=== PATIENT | male | born 1960 | race Caucasian/White ===

== ENCOUNTER 2022-09-17 14:12 | Inpatient (IN) | payer MEDICARE, MEDICAID, SELFPAY ==
--- NOTE | ~2022-09-17 | MR_ITS ---
MRI of the lumbar spine Clinical History: Weakness, multiple sclerosis Technique: Axial T2-weighted and gradient images, and sagittal T1-weighted, T2-weighted, and STIR adilson ges were acquired. Following intravenous administration of 16 cc MultiHance gadolinium, T1-weighted f at-sat imaging was performed in the axial and sagittal planes. Findings: There is no fracture or subluxation of the lumbar spine. Vertebral bodies maintain normal h eight and alignment. No bone marrow signal abnormality seen. At L1-L2, L2-L3, there is no disc bulge or herniation. No spinal canal stenosis or neural foraminal n arrowing at these levels. At L3-L4, there is minimal disc bulge with mild facet arthropathy. No spinal canal stenosis. There is mild to moderate right neural foraminal narrowing. Left neural foramen preserved. At L4-L5, there is minimal disc bulge with facet arthropathy. No spinal canal stenosis. There is mode rate right neural foraminal narrowing. Left neural foramen preserved. At L5-S1, there is no disc bulge or herniation. There is mild facet joint degenerative change. No spi nal canal stenosis or neural foraminal narrowing. Cauda equina unremarkable. No epidural mass or collection seen otherwise. No abnormal postcontrast en hancement identified. Paravertebral soft tissues are unremarkable. Impression: No abnormal postcontrast enhancement. Right neural foraminal narrowing at L3-L4 and L4-L5, as detailed above. Reviewed, dictated and finalized at [facility]. ATING COST CLERK Impression: No abnormal postcontrast enhancement. Right neural foraminal narrowing at L3-L4 and L4-L5, as detailed above.
--- NOTE | ~2022-09-17 | MR_ITS ---
EXAMINATION: MR brain/brain stem wo/w con DATE: 09/18/2022 13:29 INDICATION: Weakness. Multiple sclerosis. TECHNIQUE: Magnetic resonance imaging (MRI) of the brain and brainstem was performed without and with 16 mL Multihance intravenous contrast. Sequences included sagittal and axial T1-weighted FLAIR, axia l T1-weighted FSE, axial diffusion-weighted FS EPI, sagittal T2-weighted FLAIR, axial T2*-weighted GR E, axial T2-weighted FLAIR Propeller, and axial T2-weighted Propeller. Postcontrast sequences include d axial, coronal, and sagittal T1-weighted FSE. Apparent diffusion coefficient (ADC) maps were create d. . COMPARISON: Head CT dated 09/17/2022 FINDINGS: There are no areas of restricted diffusion to suggest acute infarction. No intracranial hemorrhage or abnormal intracranial mass lesion. There are multiple periventricular predominant T2 hyperintense le sions becoming confluent along the bilateral corpus callosum with fingerlike radiating peripherally f rom the corpus callosum with typical Lopez's fingers configuration of multiple sclerosis. Several of the lesions also demonstrate associated decreased T1 signal most prominently along the right posteri or frontal periventricular white matter. No infratentorial lesions identified. No enhancing lesions i dentified. There are no intraparenchymal signal abnormalities seen on the other pulse sequences. The ventricles are symmetric and normal in size. There are no abnormal extra-axial fluid collections. Eddy w voids are seen in the cerebral arteries on the T2-weighted sequences consistent with their expected patency. Mild mucoperiosteal thickening the bilateral frontal and ethmoid sinuses. Visualized orbits and soft tissues are unremarkable. IMPRESSION: 1. Multiple periventricular predominant T2 hyperintense white matter lesions, the majority with perip herally radiating pattern of pericallosal T2 hyperintense white matter lesions with Lopez's finger l munira pattern typical for multiple sclerosis. No evident enhancing lesions to suggest currently progres sing disease. Reviewed, dictated and finalized at location A. FIXING PLUMBER IMPRESSION: 1. Multiple periventricular predominant T2 hyperintense white matter lesions, t he majority with peripherally radiating pattern of pericallosal T2 hyperintense white matter lesions with Lopez's finger like pattern typical for multiple sc lerosis. No evident enhancing lesions to suggest currently progressing disease.
--- NOTE | ~2022-09-17 | MR_ITS ---
MRI of the thoracic spine Clinical History: Weakness, multiple sclerosis Technique: Axial T2-weighted and gradient images, and sagittal T1-weighted, T2-weighted, and STIR adilson ges were acquired. Following intravenous administration of 16 cc MultiHance gadolinium, T1-weighted f at-sat imaging was performed in the axial and sagittal planes. Findings: There is no fracture or subluxation of the thoracic spine. Vertebral bodies maintain normal height and alignment. No bone marrow signal abnormality seen. Small central disc protrusion noted at T5-T6, with minimal flattening of the ventral cord. No other d isc bulge or herniation seen. No other areas of spinal canal stenosis or cord compression. No epidura l mass or collection seen otherwise. No definite abnormal signal seen in the thoracic spinal cord. No abnormal postcontrast enhancement se en. Paravertebral soft tissues are unremarkable. Impression: No spinal cord lesion identified. Small central disc protrusion at T5-T6, with minimal flattening of the ventral cord. Reviewed, dictated and finalized at [facility]. ROLLER OPERATOR Impression: No spinal cord lesion identified. Small central disc protrusion at T5-T6, with minimal flattening of the ventral cord.
--- NOTE | ~2022-09-17 | MR_ITS ---
MRI of the cervical spine Clinical History: Weakness, multiple sclerosis Technique: Axial T2-weighted, T1-weighted, and gradient images, and sagittal T1-weighted, T2-weighted , and STIR images were acquired. Following intravenous administration of 16 cc MultiHance gadolinium, T1-weighted fat-sat imaging was performed in the axial and sagittal planes. Findings: There is no fracture or subluxation of the cervical spine. Vertebral bodies maintain normal height and alignment. No bone marrow signal abnormality identified. At C2-C3 and C3-C4, there is no disc bulge or herniation. No spinal canal stenosis, cord compression, or neural foraminal narrowing at these levels. At C4-C5, disc osteophyte complex is present, with mild effacement of the ventral thecal sac, but no lius cord compression. Bilateral neural foramina are preserved. At C5-C6, disc osteophyte complex is present, with mild effacement of the anterior thecal sac, but no luis cord compression. Bilateral neural foramina are preserved. At C6-C7, there is no significant disc bulge or herniation. No spinal canal stenosis, cord compressio n, or neural foraminal narrowing identified. There are probable multiple hyperintense amorphous spinal cord lesions, most notably on the left side of the cord at the C2 level, probably centrally in the cord at the C3 level and C4 levels, and possi ble minimal left-sided cord at the C5 level. Suspected right-sided cord lesion at C6 level. No abnormal postcontrast enhancement identified. No prevertebral soft tissue swelling. Impression: Multiple probable subtle, amorphous hyperintense spinal cord lesions, consistent with demyelinating p laques of multiple sclerosis. No abnormal postcontrast enhancement. Mild degenerative spondylosis, as detailed above. Reviewed, dictated and finalized at [facility]. UI DEVELOPER Impression: Multiple probable subtle, amorphous hyperintense spinal cord lesions, consisten t with demyelinating plaques of multiple sclerosis. No abnormal postcontrast enhancement. Mild degenerative spondylosis, as detailed above.
--- NOTE | ~2022-09-17 | CT_ITS ---
Non-contrast Head CT History: Weakness Technique: Axial non-contrast imaging of the brain was performed. Dose reduction technique was used on this scan by utilizing automated exposure control and iterative reconstruction technique. The dose -length product (DLP) was 605.33 mGy-cm. Findings: There is no evidence of intracranial hemorrhage, mass lesion, or acute infarct. Brain par enchyma appears normal. The ventricles and subarachnoid spaces are normal in size. The calvarium ap pears normal. The visualized paranasal sinuses and mastoid air cells are clear. Impression: No significant abnormality seen. Reviewed, dictated and finalized at location . NG ROOM ATTENDANT Impression: No significant abnormality seen.
--- NOTE | ~2022-09-17 | XR_ITS ---
Portable chest x-ray Comparison: None Clinical History: Weakness, mental status change Findings: Lungs are clear, without focal consolidation or pleural effusion. Cardiomediastinal silho uette is unremarkable. Bones and soft tissues are unremarkable. Impression: Normal chest. Reviewed, dictated and finalized at [facility]. RDS SPECIALIST Impression: Normal chest.
[2022-09-17 15:08] VITALS: BP 126/82; PULSE 119; RESP 20; TEMP 36.6; O2SAT 99
--- NOTE | 2022-09-17 16:12 | ECG_ITS ---
Measurements Intervals [place] Rate: 80 P: 19 [place]: 174 QRS: 5 QRSD: 101 T: 28 QT: 356 QTc: 412 Interpretive Statements SINUS RHYTHM NO PREVIOUS ECG AVAILABLE FOR COMPARISON Electronically Signed On 09-18-2022 17:51:00 APPARATUS ENGINEERING TECHNOLOGIST by Priya Manning M.D.
[2022-09-17 16:30] LABS: Add Urine Microscopic? NO; Appearance Urine Clear (Clear); Bilirubin Urine Negative (Negative); Blood Urine Negative (Negative); Color Urine Light Yellow (Yellow); Glucose Urine UA Negative (Negative); Ketones Urine Negative (Negative); Leukocyte Esterase Ur Negative LEU/UL (Negative); Nitrate Urine Negative (Negative); Protein Urine Negative (Negative); Urobilinogen Urine 0.2 mg/dL (<2.0)
[2022-09-17 16:32] LABS: Basophils Absolute Auto 0.1 K/mm3 (0.0-0.1); Basophils Percent Auto 0.5 % (0.2-1.2); Eosinophils Absolute Auto 0.1 K/mm3 (0-0.3); Eosinophils Percent Auto 0.6 % (0-4.4); Hematocrit 40.8 % (42.0-52.0); Hemoglobin 13.9 g/dL (14.0-18.0); Immature Granulocyte Absolute 0.07 K/mm3 (0.00-0.031); Immature Granulocyte Percent A 0.6 % (0-0.5); Lymphocytes Absolute Auto 1.26 K/mm3 (0.9-3.2); Lymphocytes Percent Auto 10.8 % (18.3-44.2); Mean Corpuscular HGB Conc 34.1 g/dl (32-36); Mean Corpuscular Hemoglobin 30.7 pg (26-34); Mean Corpuscular Volume 90.1 fl (80-100); Monocytes Absolute Auto 0.8 K/mm3 (0.1-0.6); Monocytes Percent Auto 6.8 % (2.6-8.5); Neutrophils Absolute Auto 9.4 K/mm3 (1.3-6.7); Neutrophils Percent Auto 80.7 % (45.5-73.1); Platelet Count Result 230 k/mm3 (150-375); Red Blood Count 4.53 M/mm3 (4.6-6.20); White Blood Count 11.7 K/mm3 (4.5-10.0)
--- NOTE | 2022-09-17 16:38 | ED.AMS ---
HPI - Altered Mental Status General Chief Complaint: Altered Mental Status Stated Complaint: increased confusion/tbi/psych problems Time Seen by Provider: 09/17/22 16:10 Source: patient and EMS Mode of arrival: EMS Limitations: clinical condition History of Present Illness HPI narrative: Patient is a 62-year-old male with a history of multiple sclerosis, manic behavior, presenting to the emergency department for evaluation of altered mental status. Patient is currently alert and oriented to person, place, to time. This, he has difficulty focusing during the interview but when directed is able to provide accurate answers. He denies any focal pain but states that something is wrong with him. Patient denies suicidal or homicidal ideation or auditory hallucinations. He denies fall or injury. States that earlier today he was trying to speak with his ex- with whom he lives and she felt that he was confused and agitated. After I discussed this with ex-, she states that he has had increasing agitation and aggressive behavior. He has been increasingly weak in the bilateral lower extremities and she has been unable to care for him. Apparently, patient's weakness increased while he was at [facility] today which is a area that he does not typically frequent. Patient is quite agitated and tearful at the time of assessment unable to provide additional history but is able to follow commands. Ex- states he has seen Dr. Kumari at [facility] in the past. Related Data Allergies Allergy/AdvReac Type Severity Reaction Status Date / Time cephalexin Allergy Unknown Verified 10/03/16 17:20 Review of Systems Review of Systems: ROS unobtainable: Yes unobtainable due to mental status PMFSH Family History Family History Other Cerebrovascular accident Diabetes mellitus Family history of cardiovascular disease Hypertension Social History Social History Smoking status: Smoker, status unknown Exam Narrative: GENERAL: Awake, alert, tearful, agitated HEAD: Normocephalic, atraumatic. EYES: PERRLA and EOMI. ENT: Nares clear, no rhinorrhea or epistaxis. Mucous membranes moist. NECK: Supple. CHEST: No respiratory distress, breathing even and non labored HEART: Tachycardic rate, sinus rhythm ABDOMEN:Non distended, non tender EXTREMITIES: Normal range of motion. No edema. SKIN: Warm, dry, no rash. NEURO:No focal deficits. Alert and oriented x3. Finger to nose slowed but intact bilaterally. EOMs intact without nystagmus. No facial droop/asymmetry noted bilaterally. Grimace intact. Intact sensation in face. Hearing intact bilaterally. Shoulder shrug intact. Strength 5/5 bilateral upper extremities. Bilateral lower extremities are weak, patient is unable to resist gravity or raise legs from wheelchair. Ambulatory exam deferred. Course Vital Signs Vital signs: Vital Signs Temperature 36.6 C 09/17/22 15:08 Pulse Rate 119 H 09/17/22 15:08 Respiratory Rate 20 09/17/22 15:08 Blood Pressure 126/82 09/17/22 15:08 Pulse Oximetry 99 09/17/22 15:08 Oxygen Delivery Room Air 09/17/22 15:08 Temperature 36.6 C 09/17/22 15:08 Pulse Rate 119 H 09/17/22 15:08 Respiratory Rate 20 09/17/22 15:08 Blood Pressure 126/82 09/17/22 15:08 Pulse Oximetry 99 09/17/22 15:08 Oxygen Delivery Room Air 09/17/22 15:08 MDM - Altered Mental Status MDM Narrative Medical decision making narrative: Patient presenting for evaluation of agitation, lower extremity weakness. Found to be quite tearful at the time of assessment. ABCs are intact, vital signs patient is tachycardic. No evidence of fall or injury. Lower extremities do not have any bruising or deformity that would be concerning for osseous abnormality. Laboratory results are reassuring. No significant electrolyte derangement, no evidence of infectious process.
[2022-09-17 16:40] LABS: Acetaminophen < 10 ug/mL (10-30); Ethanol < 10 mg/dL (<10); Salicylate < 1.0 mg/dL (2-20)
[2022-09-17 16:45] LABS: Mucus Urine Rare /lpf; RBC Urine 0-2 /hpf (0-2); WBC Urine 0-3 /hpf
[2022-09-17 16:47] LABS: Prothrombin Time 12.6 Seconds (11.1-14.7)
[2022-09-17 16:48] LABS: Partial Thromboplastin Time 31.4 SECONDS (22.3-36.8)
[2022-09-17 16:50] LABS: Lactic Acid Reflex 1.2 mmol/L (0.7-2.0)
[2022-09-17 16:51] LABS: Alanine Aminotransferase 43 U/L (6-50); Albumin Level 5.1 g/dL (3.5-5.1); Alkaline Phosphatase 75 U/L (38-126); Anion Gap 9 mmol/L (8-16); Aspartate Amino Transferase 40 U/L (17-59); Bilirubin,Total 0.7 mg/dL (0.2-1.3); Blood Urea Nitrogen 17 mg/dL (9-20); Calcium 9.3 mg/dL (8.4-10.2); Carbon Dioxide 25 mmol/L (22-30); Chloride 101 mmol/L (98-107); Creatine Kinase 126 U/L (55-170); Estimated CRCL calculation 87 ml/min; Estimated Glomerular Filt Rate > 60; Glucose 107 mg/dL (65-110); Potassium 4.6 mmol/L (3.4-5.0); Sodium 135 mmol/L (137-145)
[2022-09-17 17:05] LABS: Amphetamine Screen Urine Negative (Negative); Cannabinoid Screen Urine Positive (Negative); Cocaine Screen Urine Negative (Negative); Methadone Screen Urine Negative (Negative); Opiate Screen Urine Positive (Negative); Phencyclidine Screen Urine Negative (Negative)
[2022-09-17 17:06] LABS: Influenza A QL RT-PCR Negative (Negative); Influenza B QL RT-PCR Negative (Negative); RSV RNA, RT-PCR Negative (Negative); SARS-CoV-2 RNA PCR Negative
[2022-09-17 17:18] LABS: Barbiturate Screen Urine Negative (Negative); Benzodiazepines Screen Urine Negative (Negative)
[2022-09-17 17:28] LABS: Thyroid Stimulating Hormone 0.963 uIU/mL (0.465-4.680)
[2022-09-17 17:38] LABS: Troponin I < 0.012 ng/mL (0.000-0.034)
[2022-09-17] MEDS: SODIUM CHLORIDE 0.9% IV 1,000 ML 999 ML IV CONT (18:52)
--- NOTE | 2022-09-17 19:11 | PM.IMHP ---
H&P: HPI History of Present Illness Date/Time: 09/17/22 19:11 Chief Complaint: Altered mental status Narrative: This is a 62-year-old male patient who has a history of MS and manic behavior. The patient came to the emergency room to be evaluated for his altered mental status. The patient was having difficulty focusing today and his legs were weak. The patient denies any homicidal or suicidal ideation or any hallucinations. He has not had any recent injury. The patient does live with his ex- and he has been more agitated and aggressive lately. The patient stated he is under the care of a psychiatrist and stated he like to go to [facility]. The patient's legs were very weak today and the ex- stated she could not take care of the patient. Chest x-ray was read as normal chest. Head CT was read as no significant abnormality seen. The ED provider consulted Neurology. Patient's white count 11.7. H&H is 13.9 and 40.8. Sodium is slightly low at 135. The patient is positive for opiates and the patient admits to smoking marijuana today. He was positive for cannabinoids. The patient is negative for influenza a B COVID and RSV. The patient was given normal saline and I ordered Ativan for the patient. The patient is being admitted to observation status on the date of service of 09/17/2022. Review of Systems Review of Systems: See HPI All systems reviewed & are unremarkable except as noted in HPI and below Constitutional: Constitutional: Reports as per HPI and Reports no additional constitutional complaints Eyes: Eyes: Reports as per HPI and Reports no additional eye complaints ENT: Reports system reviewed and no additional complaints, except as documented and Reports Normal hearing present Cardiovascular: Cardiovascular: Reports no additional cardiovascular complaints Respiratory: Respiratory: Reports no additional respiratory complaints and Reports no additional respiratory complaints Gastrointestinal: Gastrointestinal: Reports as per HPI and Reports no additional gastrointestinal complaints Musculoskeletal: Musculoskeletal: Reports no additional musculoskeletal complaints Integumentary/Breasts: Skin/Breast: Reports system reviewed and no additional complaints, except as docu and Reports as per HPI Neurologic: Reports system reviewed and no additional complaints, except as documented, Reports as per HPI and Reports Normal hearing present Psychiatric: Psychiatric: Reports no additional psychiatric complaints and Reports as per HPI Endocrine: Endocrine: Reports no additional endocrine complaints Hematologic/Lymphatic: Hematologic/Lymphatic: Reports no additional hematologic/lymphatic complaints Allergic/Immunologic: Allergic/Immunologic: Reports no additional allergic/immunologic complaints [facility] Past Medical History Medical History (Updated 09/17/22 @ 21:10 by Tami Blankenship NP) Anxiety and depression Hyperlipidemia Multiple sclerosis Surgical History Surgical History No history of previous surgery Family History Family History Other Cerebrovascular accident Diabetes mellitus Family history of cardiovascular disease Hypertension Social History Social History (Updated 09/17/22 @ 21:16 by Tami Blankenship NP) Social History: The patient has 3 children. He lives with his ex- Carmen who is his durable power commercial real estate attorney for healthcare. He is Diabled. He is a recovering Alcoholic. The patient smokes marijuana when he feels anxious. Code status full code Smoking status: Current some day smoker Substance use type: marijuana Meds Home Medications and Allergies Home Medications Medication Instructions Recorded Confirmed Type [place]-3 Fish Oil 1,200 mg PO Q12H 09/17/22 09/17/22 History amitriptyline 25 mg tablet 50 mg PO HS 09/17/22 09/17/22 History aspirin 81 mg tablet
[2022-09-17 20:00] VITALS: PULSE 76
[2022-09-17 20:30] VITALS: BP 140/79; PULSE 82; RESP 13; TEMP 36.3; O2SAT 97
--- NOTE | 2022-09-17 20:35 | ADMGEN ---
This patient, Beny Smith, was admitted to [facility] Surg Room 321-02. Patient/family oriented to hospital policies and general routines including ID bracelet, bed and alarms, visiting hours, pain management, procedures, bathroom and other care routines, personal items, smoking policy, room service/diet, and visiting hours. Information on how to activate the Rapid Response Team has been discussed. Patient/Family are encouraged to report perceived risks to care and to ask questions if they do not understand what they are told or what they should do.
[2022-09-17 21:00] VITALS: BMI 25.7
[2022-09-17] MEDS: FLUTICASONE PROPIONATE 0.05% NA SPR 16 GM BTL (*BKC) 1 SPRAY NASAL (23:02)
[2022-09-17] MEDS: AMITRIPTYLINE HCL 25 MG TABLET 50 MG PO (23:02)
[2022-09-17] MEDS: ESCITALOPRAM OXALATE 10 MG TABLET PO (23:02)
[2022-09-17] MEDS: ESCITALOPRAM OXALATE 5 MG TABLET PO (23:02)
[2022-09-17] MEDS: DIVALPROEX SODIUM ER 250 MG TAB.24H PO (23:02)
[2022-09-17] MEDS: OMEGA 3 POLYUNSAT FATTY ACIDS 1 GM CAP PO (23:02)
[2022-09-18] VITALS (10 sets, daily range): BP systolic 79–109; BP diastolic 56–70; PULSE 60–98; RESP 16–18; TEMP 35.8–36.4; O2SAT 95–98; BMI 25.7
--- NOTE | 2022-09-18 04:29 | PCRCNOTE ---
rt found marijuana pipe and platen grinder on bedside table. pipe and platen grinder given to RN. RN put pipe and platen grinder in safe.
--- NOTE | 2022-09-18 04:50 | PC.NURSE ---
Patient became verbally aggressive towards staff s/p confiscation of marijuana pipe; patient yelled at staff when staff attempted to explain that his pipe and occupational work experience teacher will be returned at time of discharge. Patient then accused staff of stealing his other possessions, including his pants, wallet, and hat. Staff attempted to explain to patient that his hat had fallen on the floor and that his wallet was in his personal belongings bag; pants were laying at the end of the bed. Patient stated he no longer wanted to stay at the hospital. Patient is not oriented to time and unable to redirect. office machine repair shop supervisor arrived during the incident and assisted in diffusing the situation.
[2022-09-18 07:18] LABS: Lactic Acid Reflex 0.8 mmol/L (0.7-2.0)
[2022-09-18 07:19] LABS: Anion Gap 4 mmol/L (8-16); Blood Urea Nitrogen 22 mg/dL (9-20); Calcium 8.8 mg/dL (8.4-10.2); Carbon Dioxide 28 mmol/L (22-30); Chloride 105 mmol/L (98-107); Estimated CRCL calculation 87 ml/min; Estimated Glomerular Filt Rate > 60; Glucose 98 mg/dL (65-110); Potassium 4.3 mmol/L (3.4-5.0); Sodium 137 mmol/L (137-145)
[2022-09-18 07:21] LABS: Basophils Percent Auto 0.8 % (0.2-1.2); Eosinophils Absolute Auto 0.1 K/mm3 (0-0.3); Eosinophils Percent Auto 2.4 % (0-4.4); Hematocrit 37.5 % (42.0-52.0); Hemoglobin 12.3 g/dL (14.0-18.0); Immature Granulocyte Absolute 0.03 K/mm3 (0.00-0.031); Immature Granulocyte Percent A 0.6 % (0-0.5); Lymphocytes Absolute Auto 0.97 K/mm3 (0.9-3.2); Lymphocytes Percent Auto 19.6 % (18.3-44.2); Mean Corpuscular HGB Conc 32.8 g/dl (32-36); Mean Corpuscular Hemoglobin 30.4 pg (26-34); Mean Corpuscular Volume 92.6 fl (80-100); Mean Platelet Volume 10.2 fl (7.4-10.4); Monocytes Absolute Auto 0.5 K/mm3 (0.1-0.6); Monocytes Percent Auto 10.9 % (2.6-8.5); Neutrophils Absolute Auto 3.3 K/mm3 (1.3-6.7); Neutrophils Percent Auto 65.7 % (45.5-73.1); Platelet Count Result 189 k/mm3 (150-375); Red Blood Count 4.05 M/mm3 (4.6-6.20); Red Cell Distribution Width 13.1 % (11.5-14.5)
[2022-09-18 08:00] LABS: Thyroid Stimulating Hormone Reflex 0.731 uIU/mL (0.465-4.68)
[2022-09-18] MEDS: OMEGA 3 POLYUNSAT FATTY ACIDS 1 GM CAP PO ×2 (09:11→21:05)
[2022-09-18] MEDS: MELOXICAM 7.5 MG TABLET 15 MG PO (09:11)
[2022-09-18] MEDS: ASPIRIN 81 MG CHEWABLE TABLET PO (09:11)
[2022-09-18] MEDS: DIVALPROEX SODIUM ER 250 MG TAB.24H PO ×2 (09:11→18:04)
[2022-09-18] MEDS: FLUTICASONE/SALMETEROL 45-21 MCG INHALER 1 PUFF 2 PUFF INHALATION ×2 (09:34→20:24)
[2022-09-18] MEDS: HYDROcodone/acetaminophen (*CRX) 10-325 MG TABLET 1 TAB PO ×2 (10:50→18:03)
--- NOTE | 2022-09-18 14:18 | PHAR ---
HOME MEDICATION VERIFIED BY PHARMACY MONCHOENYA 0.5 MG CAPSULES TAKE ONE CAPSULE PO DAILY RX#[id number]
--- NOTE | 2022-09-18 17:37 | PM.IMPN ---
Progress Note: A&P Assessment and Plan (1) Anxiety and depression: Code(s): F41.9 - Anxiety disorder, unspecified; F32.A - Depression, unspecified Status: Acute Assessment and Plan: Care coordination consultation for transfer to [place] pending (2) Multiple sclerosis: Code(s): G35 - Multiple sclerosis Status: Acute Assessment and Plan: Appreciate neurology consultation, MRI pending (3) Hyperlipidemia: Code(s): E78.5 - Hyperlipidemia, unspecified Status: Acute Assessment and Plan: Continue statin (4) Bilateral leg weakness: Code(s): R29.898 - Other symptoms and signs involving the musculoskeletal system Status: Acute Assessment and Plan: PT/OT Plan DVT prophylaxis with SCDs GI prophylaxis not indicated Code status full code Subjective Date/time seen: 09/18/22 17:37 Interval history: No overnight events noted. No chest pain or shortness of breath. No nausea, vomiting or diarrhea. No fevers or chills. Still with continued lower extremity weakness. Review of Systems Review of Systems: 12 point review of systems was assessed and was negative except as noted in the HPI Exam Narrative: General: No acute distress, alert and oriented per baseline HEENT: Atraumatic, normocephalic, mucous membranes moist CV: Regular rate and rhythm, S1, S2 Lungs: Clear to auscultation bilaterally, no rales or crackles noted, no wheezes, good air entry Abdomen: Soft, nontender, nondistended Extremities: Normal to inspection Skin: No rashes noted, no lesions or wounds seen Psych: Euthymic, normal affect Objective Data Vital Signs Vital Signs: Vital Signs - 24 hr 09/17/22 20:30 09/17/22 20:00 09/18/22 00:00 Temperature 97.3 F L Pulse Rate 82 76 76 Respiratory Rate 13 Blood Pressure 140/79 Pulse Oximetry 97 Oxygen Delivery 09/18/22 04:00 09/18/22 06:00 09/18/22 09:36 Temperature 97.1 F L Pulse Rate 60 62 Respiratory Rate 18 Blood Pressure 109/70 Pulse Oximetry 98 96 Oxygen Delivery Room Air 09/18/22 08:00 09/18/22 16:00 Temperature Pulse Rate 60 72 Respiratory Rate Blood Pressure Pulse Oximetry Oxygen Delivery Intake/Output Intake/Output: Intake & Output 09/15/22 09/16/22 09/17/2209/18/22 23:59 23:59 23:59 23:59 Intake Total 1000 460 Output Total 600 Balance 1000 -140 Meds/Results Medications: Active Medications Generic Name Dose Route Start Last Admin Trade Name Freq PRN Reason Stop Dose Admin Acetaminophen 650 mg 09/17/22 17:08 Acetaminophen 325 Mg Tablet PO Q4H PRN Mild Pain (1-3) or Fever Hydrocodone Bitart/Acetaminophen 1 tab 09/18/22 10:30 09/18/22 10:50 Hydrocodone/Acetaminophen (*Crx) 10-325 Mg Tablet PO 1 tab Q6H PRN Administration Pain Rated 7-10 Amitriptyline HCl 50 mg 09/17/22 22:00 09/17/22 23:02 Amitriptyline Hcl 25 Mg Tablet PO 50 mg HS SALEEM Administration Aspirin 81 mg 09/18/22 09:00 09/18/22 09:11 Aspirin 81 Mg Chewable Tablet PO 81 mg DAILY SALEEM Administration Divalproex Sodium 250 mg 09/17/22 22:00 09/18/22 09:11 Divalproex Sodium Er 250 Mg Tab.24h PO 250 mg BID SALEEM Administration Escitalopram Oxalate 10 mg 09/17/22 22:05 09/17/22 23:02 Escitalopram Oxalate 10 Mg Tablet PO 10 mg HS SALEEM Administration Escitalopram Oxalate 5 mg 09/17/22 22:05 09/17/22 23:02 Escitalopram Oxalate 5 Mg Tablet PO 5 mg HS SALEEM Administration Fish Oil 1 gm 09/17/22 22:00 09/18/22 09:11 Patten 3 Polyunsat Fatty Acids 1 Gm Cap PO 1 gm Q12H SALEEM Administration Fluticasone Propionate 1 spray 09/17/22 22:00 09/17/22 23:02 Fluticasone Propionate 0.05% Na Spr 16 Gm Btl (*Bkc) NASAL 1 spray HS SALEEM Administration Home Med 1 each 09/19/22 09:00 Gilen[place] 0.5 Mg Capsule (Home Med) PO 10/19/22 08:59 DAILY SALEEM Loratadine 10 mg 09/19/22 09:00 Loratadi
[2022-09-18] MEDS: MECLIZINE HCL 25 MG TABLET 50 MG PO (18:03)
[2022-09-18] MEDS: BACLOFEN 5 MG TABLET PO (18:38)
[2022-09-18] MEDS: FLUTICASONE PROPIONATE 0.05% NA SPR 16 GM BTL (*BKC) 1 SPRAY NASAL (21:05)
[2022-09-18] MEDS: ESCITALOPRAM OXALATE 10 MG TABLET PO (21:05)
[2022-09-18] MEDS: ESCITALOPRAM OXALATE 5 MG TABLET PO (21:05)
[2022-09-18] MEDS: AMITRIPTYLINE HCL 25 MG TABLET 50 MG PO (21:05)
[2022-09-18] MEDS: ATORVASTATIN 40 MG TABLET PO (21:05)
[2022-09-19] VITALS (10 sets, daily range): BP systolic 105–136; BP diastolic 68–76; PULSE 60–89; RESP 14–18; TEMP 36.5–36.6; O2SAT 96–99
[2022-09-19 06:36] LABS: Basophils Absolute Auto 0.1 K/mm3 (0.0-0.1); Eosinophils Absolute Auto 0.1 K/mm3 (0-0.3); Eosinophils Percent Auto 2.5 % (0-4.4); Hemoglobin 12.2 g/dL (14.0-18.0); Immature Granulocyte Absolute 0.02 K/mm3 (0.00-0.031); Immature Granulocyte Percent A 0.4 % (0-0.5); Lymphocytes Absolute Auto 1.32 K/mm3 (0.9-3.2); Lymphocytes Percent Auto 27.6 % (18.3-44.2); Mean Corpuscular Volume 90.9 fl (80-100); Mean Platelet Volume 10.2 fl (7.4-10.4); Monocytes Absolute Auto 0.4 K/mm3 (0.1-0.6); Monocytes Percent Auto 8.4 % (2.6-8.5); Neutrophils Absolute Auto 2.9 K/mm3 (1.3-6.7); Neutrophils Percent Auto 60.1 % (45.5-73.1); Platelet Count Result 178 k/mm3 (150-375); Red Blood Count 4.07 M/mm3 (4.6-6.20); Red Cell Distribution Width 13.2 % (11.5-14.5); White Blood Count 4.8 K/mm3 (4.5-10.0)
[2022-09-19 06:40] LABS: Alanine Aminotransferase 34 U/L (6-50); Alkaline Phosphatase 55 U/L (38-126); Anion Gap 4 mmol/L (8-16); Aspartate Amino Transferase 28 U/L (17-59); Bilirubin,Total 0.4 mg/dL (0.2-1.3); Blood Urea Nitrogen 28 mg/dL (9-20); Calcium 8.5 mg/dL (8.4-10.2); Carbon Dioxide 31 mmol/L (22-30); Chloride 106 mmol/L (98-107); Estimated CRCL calculation 71 ml/min; Estimated Glomerular Filt Rate > 60; Glucose 97 mg/dL (65-110); Potassium 4.3 mmol/L (3.4-5.0); Sodium 141 mmol/L (137-145)
[2022-09-19] MEDS: MELOXICAM 7.5 MG TABLET 15 MG PO (09:18)
[2022-09-19] MEDS: DIVALPROEX SODIUM ER 250 MG TAB.24H PO ×2 (09:18→18:00)
[2022-09-19] MEDS: BACLOFEN 5 MG TABLET PO ×3 (09:18→18:00)
[2022-09-19] MEDS: ASPIRIN 81 MG CHEWABLE TABLET PO (09:18)
[2022-09-19] MEDS: OMEGA 3 POLYUNSAT FATTY ACIDS 1 GM CAP PO ×2 (09:18→21:43)
[2022-09-19] MEDS: MECLIZINE HCL 25 MG TABLET 50 MG PO ×3 (09:18→18:01)
[2022-09-19] MEDS: LORATADINE 10 MG TABLET PO (09:18)
[2022-09-19] MEDS: HYDROcodone/acetaminophen (*CRX) 10-325 MG TABLET 1 TAB PO (09:24)
[2022-09-19] MEDS: modafiniL (*CRX) 200 MG TABLET PO (09:24)
[2022-09-19] MEDS: FLUTICASONE/SALMETEROL 45-21 MCG INHALER 1 PUFF 2 PUFF INHALATION ×2 (09:40→21:43)
--- NOTE | 2022-09-19 12:38 | WPDNEURCNPN ---
Assessment and Plan Assessment and plan (1) Multiple sclerosis: Code(s): G35 - Multiple sclerosis Status: Acute Plan 1. Ongoing anxiety with depression 2. Multiple sclerosis by history and documented by the abnormal MRI considering the complaints of lower extremity weakness will discuss with her the 5 day course of Medrol and see if he can fit him in ongoing treatment PE Consult date: 09/19/22 HPI: Beny Smith is a 62 year old male admitted to the hospital through the emergency room for the complaints of increasing confusion in addition to the history of 1. Multiple sclerosis 2. Manic disorder 3. Complaints of difficulties in focusing and statement that something is wrong with him as per the information from ex- he was noted to have increasing agitation and aggression along with the increasing generalized weakness his initial vital signs were stable was admitted to the hospital for the electrolyte imbalance in addition to the delirium. CBC was unremarkable routine lab was normal, UA was negative urine was positive for cannabinoids and opiates testing for influenza a and B and RSV also COVID negative CT scan of the head negative for the bleed and EKG also normal without evidence of atrial fibrillation, MRI of the lumbar spine revealed only arthritic changes, MRI of the brain with multiple periventricular T2 hyperintensities of the white matter particularly in the periventricular area suggesting the Lopez's finger like configuration, thoracic MRI central disc protrusion at T5 and T6 and MRI of cervical spine amorphous hyper intense spinal cord lesion again suggestive of the demyelinating process Review of Systems Review of Systems: All systems reviewed & are unremarkable except as noted in HPI and below PMFSH Past Medical History Medical History (Updated 09/17/22 @ 21:10 by Tami Blankenship NP) Anxiety and depression Hyperlipidemia Multiple sclerosis Surgical History Surgical History No history of previous surgery Family History Family History Other Cerebrovascular accident Diabetes mellitus Family history of cardiovascular disease Hypertension Social History Social History (Updated 09/17/22 @ 21:16 by Tami Blankenship NP) Social History: The patient has 3 children. He lives with his ex- Carmen who is his durable power trade mark attorney for healthcare. He is Diabled. He is a recovering Alcoholic. The patient smokes marijuana when he feels anxious. Code status full code Smoking status: Current some day smoker Smokeless tobacco user: other Additional smoking assessment comments: marijuana daily smoker Alcohol intake: former Substance use: current Substance use type: marijuana Last use: 09/17/22 Lack of Transportation: No Lack of Food: Never True Current Housing: I Have Housing Concerned About Future Housing: No Difficulty Paying Gas/Electric Bills: No Difficulty Paying for Meds: No Currently Unemployed: No Education: Trade/Vocational Certificate Difficulty w/ Childcare or Family Care: No Spiritual care concerns: No Meds Home Medications and Allergies Home Medications Medication Instructions Recorded Confirmed Type [place]-3 Fish Oil 1,200 mg PO Q12H 09/17/22 09/17/22 History amitriptyline 25 mg tablet 50 mg PO HS 09/17/22 09/17/22 History aspirin 81 mg tablet 81 mg PO DAILY 09/17/22 09/17/22 History atorvastatin 40 mg tablet 40 mg PO HS 09/17/22 09/17/22 History baclofen 10 mg tablet 5 mg PO TID 09/17/22 09/17/22 History divalproex 250 mg tablet,extended 250 mg PO BID 09/17/22 09/17/22 History release 24 hr escitalopram oxalate 10 mg tablet 15 mg PO HS 09/17/22 09/17/22 History fluticasone 100 mcg-salmeterol 50 1 inh inhalation Q12H 09/17/22 09/17/22 History mcg/dose blistr powdr for inhalation (Advair Diskus) fluticasone propionate 50
--- NOTE | 2022-09-19 15:11 | PM.IMPN ---
Progress Note: A&P Assessment and Plan (1) Anxiety and depression: Code(s): F41.9 - Anxiety disorder, unspecified; F32.A - Depression, unspecified Status: Acute Assessment and Plan: Care coordination consultation for transfer to [place] attempted (2) Multiple sclerosis: Code(s): G35 - Multiple sclerosis Status: Acute Assessment and Plan: Appreciate neurology consultation, MRI results consistent with prior diagnosis of MS (3) Hyperlipidemia: Code(s): E78.5 - Hyperlipidemia, unspecified Status: Acute Assessment and Plan: Continue statin (4) Bilateral leg weakness: Code(s): R29.898 - Other symptoms and signs involving the musculoskeletal system Status: Acute Assessment and Plan: PT/OT Plan DVT prophylaxis with SCDs GI prophylaxis not indicated Code status full code Subjective Date/time seen: 09/19/22 15:11 Interval history: No overnight events noted. No chest pain or shortness of breath. No nausea, vomiting or diarrhea. No fevers or chills. Patient states his lower extremity weakness is almost completely resolved. Review of Systems Review of Systems: All systems reviewed & are unremarkable except as noted in HPI and below Exam Narrative: General: No acute distress, alert and oriented per baseline HEENT: Atraumatic, normocephalic, mucous membranes moist CV: Regular rate and rhythm, S1, S2 Lungs: Clear to auscultation bilaterally, no rales or crackles noted, no wheezes, good air entry Abdomen: Soft, nontender, nondistended Extremities: Normal to inspection Skin: No rashes noted, no lesions or wounds seen Psych: Euthymic, normal affect Objective Data Vital Signs Vital Signs: Vital Signs - 24 hr 09/18/22 16:00 09/18/22 21:15 09/18/22 22:00 Temperature 96.9 F L Pulse Rate 72 72 82 Respiratory Rate 18 16 Blood Pressure 93/56 L Pulse Oximetry 96 95 Oxygen Delivery Room Air 09/18/22 22:00 09/18/22 22:00 09/18/22 20:00 Temperature 96.4 F L 96.5 F L Pulse Rate 85 98 79 Respiratory Rate 16 16 Blood Pressure 100/64 79/56 L Pulse Oximetry 96 95 Oxygen Delivery 09/19/22 00:00 09/19/22 04:00 09/19/22 06:00 Temperature 97.7 F Pulse Rate 65 60 71 Respiratory Rate 18 Blood Pressure 105/68 Pulse Oximetry 96 Oxygen Delivery 09/19/22 09:42 09/19/22 08:00 09/19/22 12:00 Temperature Pulse Rate 89 83 Respiratory Rate Blood Pressure Pulse Oximetry 97 Oxygen Delivery Room Air Intake/Output Intake/Output: Intake & Output 09/16/22 09/17/22 09/18/22 09/19/22 23:59 23:59 23:59 23:59 Intake Total 1000 1200 360 Output Total 600 700 Balance 1000 600 -340 Meds/Results Medications: Active Medications Generic Name Dose Route Start Last Admin Trade Name Freq PRN Reason Stop Dose Admin Acetaminophen 650 mg 09/17/22 17:08 Acetaminophen 325 Mg Tablet PO Q4H PRN Mild Pain (1-3) or Fever Hydrocodone Bitart/Acetaminophen 1 tab 09/18/22 10:30 09/19/22 09:24 Hydrocodone/Acetaminophen (*Crx) 10-325 Mg Tablet PO 1 tab Q6H PRN Administration Pain Rated 7-10 Amitriptyline HCl 50 mg 09/17/22 22:00 09/18/22 21:05 Amitriptyline Hcl 25 Mg Tablet PO 50 mg HS SALEEM Administration Aspirin 81 mg 09/18/22 09:00 09/19/22 09:18 Aspirin 81 Mg Chewable Tablet PO 81 mg DAILY SALEEM Administration Atorvastatin Calcium 40 mg 09/18/22 21:00 09/18/22 21:05 Atorvastatin 40 Mg Tablet PO 40 mg HS SALEEM Administration Baclofen 5 mg 09/18/22 17:45 09/19/22 13:54 Baclofen 5 Mg Tablet PO 5 mg TID SALEEM Administration Divalproex Sodium 250 mg 09/17/22 22:00 09/19/22 09:18 Divalproex Sodium Er 250 Mg Tab.24h PO 250 mg BID SALEEM Administration Escitalopram Oxalate 10 mg 09/17/22 22:05 09/18/22 21:05 Escitalopram Oxalate 10 Mg Tablet PO 10 mg HS SALEEM Administration Escitalopram Oxalate 5 mg 08/30
[2022-09-19] MEDS: polyethylene glycoL 3350 17 GM POWD.PACK PO (18:01)
[2022-09-19] MEDS: FLUTICASONE PROPIONATE 0.05% NA SPR 16 GM BTL (*BKC) 1 SPRAY NASAL (21:41)
[2022-09-19] MEDS: DOCUSATE SODIUM 100 MG CAPSULE PO (21:43)
[2022-09-19] MEDS: AMITRIPTYLINE HCL 25 MG TABLET 50 MG PO (21:44)
[2022-09-19] MEDS: ATORVASTATIN 40 MG TABLET PO (21:44)
[2022-09-19] MEDS: ESCITALOPRAM OXALATE 10 MG TABLET PO (21:44)
[2022-09-19] MEDS: ESCITALOPRAM OXALATE 5 MG TABLET PO (21:44)
[2022-09-20 04:00] VITALS: PULSE 67
[2022-09-20 05:10] VITALS: BP 134/71; PULSE 63; RESP 14; TEMP 36.1; O2SAT 99
[2022-09-20 08:49] LABS: Basophils Percent Auto 0.7 % (0.2-1.2); Eosinophils Absolute Auto 0.1 K/mm3 (0-0.3); Hematocrit 38.7 % (42.0-52.0); Hemoglobin 12.4 g/dL (14.0-18.0); Immature Granulocyte Absolute 0.03 K/mm3 (0.00-0.031); Immature Granulocyte Percent A 0.7 % (0-0.5); Mean Corpuscular Hemoglobin 30.1 pg (26-34); Mean Corpuscular Volume 93.9 fl (80-100); Mean Platelet Volume 10.1 fl (7.4-10.4); Monocytes Absolute Auto 0.3 K/mm3 (0.1-0.6); Monocytes Percent Auto 7.4 % (2.6-8.5); Neutrophils Absolute Auto 3.2 K/mm3 (1.3-6.7); Neutrophils Percent Auto 71.2 % (45.5-73.1); Platelet Count Result 192 k/mm3 (150-375); Red Blood Count 4.12 M/mm3 (4.6-6.20); White Blood Count 4.4 K/mm3 (4.5-10.0)
[2022-09-20] MEDS: MECLIZINE HCL 25 MG TABLET 50 MG PO (08:52)
[2022-09-20] MEDS: OMEGA 3 POLYUNSAT FATTY ACIDS 1 GM CAP PO (08:52)
[2022-09-20] MEDS: LORazepam INJ (*CRX) 2 MG/ML VIAL 0.5 MG IV PUSH (08:53)
[2022-09-20] MEDS: MELOXICAM 7.5 MG TABLET 15 MG PO (08:53)
[2022-09-20] MEDS: modafiniL (*CRX) 200 MG TABLET PO (08:53)
[2022-09-20] MEDS: DIVALPROEX SODIUM ER 250 MG TAB.24H PO (08:53)
[2022-09-20] MEDS: METOCLOPRAMIDE HCL 5 MG TABLET PO (08:54)
[2022-09-20] MEDS: ASPIRIN 81 MG CHEWABLE TABLET PO (08:54)
[2022-09-20] MEDS: DOCUSATE SODIUM 100 MG CAPSULE PO (08:54)
[2022-09-20] MEDS: BACLOFEN 5 MG TABLET PO (08:54)
[2022-09-20] MEDS: LORATADINE 10 MG TABLET PO (08:54)
[2022-09-20] MEDS: polyethylene glycoL 3350 17 GM POWD.PACK PO (08:55)
[2022-09-20 09:10] LABS: Alanine Aminotransferase 37 U/L (6-50); Albumin Level 4.1 g/dL (3.5-5.1); Alkaline Phosphatase 54 U/L (38-126); Anion Gap 6 mmol/L (8-16); Aspartate Amino Transferase 31 U/L (17-59); Bilirubin,Total 0.4 mg/dL (0.2-1.3); Blood Urea Nitrogen 22 mg/dL (9-20); Calcium 8.5 mg/dL (8.4-10.2); Carbon Dioxide 28 mmol/L (22-30); Chloride 107 mmol/L (98-107); Estimated CRCL calculation 87 ml/min; Estimated Glomerular Filt Rate > 60; Glucose 99 mg/dL (65-110); Potassium 4.5 mmol/L (3.4-5.0); Sodium 141 mmol/L (137-145)
[2022-09-20 09:35] VITALS: O2SAT 94
[2022-09-20] MEDS: FLUTICASONE/SALMETEROL 45-21 MCG INHALER 1 PUFF 2 PUFF INHALATION (09:35)
--- NOTE | 2022-09-20 10:39 | PM.DS ---
DS: Admitting Diagnosis Discharge Date 09/20/2022 Admitting Diagnosis ams DS: Discharge Diagnosis Discharge Diagnosis (1) Anxiety and depression: Code(s): F41.9 - Anxiety disorder, unspecified; F32.A - Depression, unspecified Status: Acute (2) Multiple sclerosis: Code(s): G35 - Multiple sclerosis Status: Acute (3) Hyperlipidemia: Code(s): E78.5 - Hyperlipidemia, unspecified Status: Acute (4) Bilateral leg weakness: Code(s): R29.898 - Other symptoms and signs involving the musculoskeletal system Status: Acute DS: Summary Hospital Course Hospital Course: 62-year-old male patient who has a history of MS and manic behavior.? The patient came to the emergency room to be evaluated for his altered mental status.? The patient was having difficulty focusing today and his legs were weak.? The patient denies any homicidal or suicidal ideation or any hallucinations.? He has not had any recent injury.? The patient does live with his ex- and he has been more agitated and aggressive lately.? The patient stated he is under the care of a psychiatrist and stated he like to go to [facility].? The patient's legs were very weak today and the ex- stated she could not take care of the patient.? Chest x-ray was read as normal chest.? Head CT was read as no significant abnormality seen.? The ED provider consulted Neurology.? Patient's white count 11.7.? H&H is 13.9 and 40.8.? Sodium is slightly low at 135.? The patient is positive for opiates and the patient admits to smoking marijuana today.? He was positive for cannabinoids.? The patient is negative for influenza a B COVID and RSV. Neurology was consulted all symptoms were thought to be psychiatric in etiology. He did have some multiple sclerosis noted, a 5 day course of steroids was given to see if any symptoms resolved from this. Was discharged in good condition with close outpatient follow-up by Neurology and Psychiatry. Time Spent with Patient Time attestation: Total time spent providing and/or coordinating discharge services: DS: Data Data Completed and Pending Labs on day of discharge: Labs from last 24 hours 09/20/22 09/20/22 08:29 08:29 WBC 4.4 L RBC 4.12 L Hgb 12.4 L Hct 38.7 L MCV 93.9 MCH 30.1 MCHC 32.0 RDW 13.0 Plt Count 192 MPV 10.1 Immature Gran % (Auto) 0.7 H Neut % (Auto) 71.2 Lymph % (Auto) 18.0 L [place] % (Auto) 7.4 Eos % (Auto) 2.0 Baso % (Auto) 0.7 Lymph # (Auto) 0.80 L [place] # (Auto) 0.3 Eos # (Auto) 0.1 Baso # (Auto) 0.0 Abs Immat Gran (auto) 0.03 Absolute Neuts (auto) 3.2 Absolute Nucleated RBC 0.0 Nucleated RBC % 0.0 Sodium 141 Potassium 4.5 Chloride 107 Carbon Dioxide 28 Anion Gap 6 L BUN 22 H Creatinine 0.80 Estim Creat Clear Calc 87 Estimated GFR > 60 Glucose 99 Calcium 8.5 Total Bilirubin 0.4 AST 31 ALT 37 Alkaline Phosphatase 54 Total Protein 7.0 Albumin 4.1 Preliminary micro results at discharge 09/17/22 18:10 Blood Culture - Preliminary Blood 09/17/22 18:10 Blood Culture - Preliminary Blood Discharge Plan Discharge Attending physician on discharge: Zulema Jonas Consulting providers: Migue Carvajal ; Smooth Toure ; Tami Blankenship ; Priya Manning ; Sanjeev Krause ; Mati Cruz Discharging Clinician: Zulema Jonas Patient Disposition: Home, Self-Care Activity: as tolerated Diet: as tolerated Patient Instructions: Antibiotic Form, How to Stop Smoking (GEN), Pain Management (DC) Stand Alone Forms: General Discharge Information Follow-up/Referrals: Migue Carvajal MD [Physician] - Lois,MD Yanna [Primary Care Provider] - Danitza Mckenna MD [Physician] - Discharge Medications: Continued atorvastatin 40 mg tablet 40 mg PO HS meclizine 50 mg Tablet 50 mg PO TID meloxicam 15 mg tablet 15 mg PO DAILY amitri
== END 2022-09-20 13:12 | disposition home or self-care (01) | DRG 885 ==
LOC: ANHED 18:54 → ANH3MEDSUR 19:41
PROVIDERS: Nurse Practitioner; Admitting Provider Internal Medicine; Emergency Provider Emergency Medicine; PCP Family Medicine; Visit Provider Student in an Organized Health Care Education/Training Program
DX: F30.9 Manic episode, unspecified (principal); G35 Multiple sclerosis; Z20.822 Contact with and (suspected) exposure to COVID-19; F41.9 Anxiety disorder, unspecified; F32.A Depression, unspecified; E78.5 Hyperlipidemia, unspecified
CPT/HCPCS: 36415; 70450; 70553; 71045; 72156; 72157; 72158; 80048; 80053; 80307; 81003; 82550; 83605; 84443; 84484; 85025; 85610; 85730; 87040; 87637; 93005; 94640; 96360; 97161; 97165; 99285; A9270; A9577; G0378; J2060; J7030

== ENCOUNTER 2022-10-13 14:00 | Emergency (ER) | payer MEDICARE, MEDICAID, SELFPAY ==
--- NOTE | ~2022-10-13 | CT_ITS ---
EXAMINATION: CT brain wo con DATE: 10/13/2022 15:06 INDICATION: Fall. Head injury. Possible loss of consciousness. TECHNIQUE: Computed tomography (CT) of the head was performed without intravenous contrast. The mA wa s adjusted according to patient size. Iterative reconstruction technique was employed. Exam dose: 60 5.33 mGy-cm total exam DLP. COMPARISON: 09/18/2022 MRI brain/brainstem 09/17/2022 CT brain FINDINGS: No intracranial mass lesion or hemorrhage or cerebrovascular accident. No midline shift or mass effect. Bilateral carotid siphon internal carotid artery and vertebral artery and basilar artery calcificatio ns. There is nonspecific diminished attenuation of the cerebral white matter, likely due to chronic s mall vessel ischemic changes. Mild to moderate cerebral and cerebellar volume loss. No subdural or epidural hematoma. No fracture or bone destruction of the cranial vault. The mastoid air cells and included paranasal si nuses are normally developed and aerated. IMPRESSION: No skull fracture or acute intracranial finding Cerebral atherosclerosis Reviewed, dictated and finalized at [facility]. Reviewed, dictated and finalized at [facility]. 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
--- NOTE | ~2022-10-13 | CT_ITS ---
EXAMINATION: CT cervical spine wo con DATE: 10/13/2022 15:06 INDICATION: Fall. Head injury. Possible loss of consciousness. TECHNIQUE: Computed tomography (CT) of the cervical spine was performed without intravenous contrast. Automated exposure control and iterative reconstruction technique were employed. Exam dose: 350.01 mGy-cm total exam DLP. COMPARISON: 09/18/2022 MR cervical spine FINDINGS: C1 and C2 are normally aligned and the odontoid process is intact. No fracture or dislocati on or locked facet or prevertebral soft tissue swelling. There is mild mid and lower cervical spine d egenerative disc disease. There is associated minimal retrolisthesis at C5-6.. IMPRESSION: No fracture, dislocation or locked facet Mild cervical spondylosis Reviewed, dictated and finalized at [facility]. Reviewed, dictated and finalized at [facility]. 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
[2022-10-13 14:03] VITALS: BP 132/80; PULSE 96; RESP 14; TEMP 36.6; O2SAT 97
--- NOTE | 2022-10-13 14:46 | ECG_ITS ---
Measurements Intervals [place] Rate: 80 P: 43 VT: 179 QRS: 21 QRSD: 109 T: 46 QT: 359 QTc: 414 Interpretive Statements SINUS RHYTHM NORMAL ECG COMPARED TO ECG 09/17/2022 18:41:01 NO SIGNIFICANT CHANGES Electronically Signed On 10-14-2022 7:50:00 ASTRO TECHNICIAN by Suman Thomas D.O.
[2022-10-13 14:58] LABS: Basophils Percent Auto 0.3 % (0.2-1.2); Eosinophils Absolute Auto 0.1 K/mm3 (0-0.3); Eosinophils Percent Auto 0.7 % (0-4.4); Hemoglobin 13.3 g/dL (14.0-18.0); Immature Granulocyte Absolute 0.04 K/mm3 (0.00-0.031); Immature Granulocyte Percent A 0.5 % (0-0.5); Lymphocytes Absolute Auto 0.41 K/mm3 (0.9-3.2); Lymphocytes Percent Auto 4.6 % (18.3-44.2); Mean Corpuscular Volume 88.6 fl (80-100); Mean Platelet Volume 9.7 fl (7.4-10.4); Monocytes Absolute Auto 0.7 K/mm3 (0.1-0.6); Monocytes Percent Auto 8.3 % (2.6-8.5); Neutrophils Absolute Auto 7.6 K/mm3 (1.3-6.7); Neutrophils Percent Auto 85.6 % (45.5-73.1); Platelet Count Result 199 k/mm3 (150-375); Red Blood Count 4.29 M/mm3 (4.6-6.20); Red Cell Distribution Width 12.4 % (11.5-14.5); White Blood Count 8.9 K/mm3 (4.5-10.0)
[2022-10-13 15:12] LABS: Alanine Aminotransferase 63 U/L (6-50); Albumin Level 4.6 g/dL (3.5-5.1); Alkaline Phosphatase 72 U/L (38-126); Anion Gap 4 mmol/L (8-16); Aspartate Amino Transferase 40 U/L (17-59); Bilirubin,Total 0.5 mg/dL (0.2-1.3); Blood Urea Nitrogen 20 mg/dL (9-20); Calcium 8.8 mg/dL (8.4-10.2); Carbon Dioxide 27 mmol/L (22-30); Chloride 101 mmol/L (98-107); Estimated CRCL calculation 81 ml/min; Estimated Glomerular Filt Rate > 60; Glucose 115 mg/dL (65-110); Sodium 132 mmol/L (137-145)
--- NOTE | 2022-10-13 15:25 | ED.FALL ---
HPI - Fall General Chief Complaint: Fall Stated Complaint: fall/hi Time Seen by Provider: 10/13/22 14:31 Source: patient Mode of arrival: EMS Limitations: no limitations History of Present Illness HPI Narrative: Patient is a 62 y/o male who presents to the ED via EMS with c/o a fall with head injury. Patient reports a Hx of 2 previous TBIs and multiple sclerosis. He uses a walker for assistance with ambulation but reports he is frequently off balance. He used the restroom at a gas station today and reported the lights went out while he was urinating. He tried moving around to activate the motion sensor, lost his balance, and fell, hitting his head against the wall. He is unsure if he lost consciousness. He was able to stand up and ambulate with his walker afterwards. EMS was called. Patient complained of mild nausea initially after hitting his head, but denies any currently. Denies vomiting, dizziness, lightheadedness, headache, vision changes, chest pain, difficulty breathing, neck pain, other pain. He is not on any blood thinners. Related Data Home Medications Medication Instructions Recorded Confirmed [place]-3 Fish Oil 1,200 mg PO Q12H 09/17/22 09/17/22 amitriptyline 25 mg tablet 50 mg PO HS 09/17/22 09/17/22 aspirin 81 mg tablet 81 mg PO DAILY 09/17/22 09/17/22 atorvastatin 40 mg tablet 40 mg PO HS 09/17/22 09/17/22 baclofen 10 mg tablet 5 mg PO TID 09/17/22 09/17/22 divalproex 250 mg tablet,extended 250 mg PO BID 09/17/22 09/17/22 release 24 hr escitalopram oxalate 10 mg tablet 15 mg PO HS 09/17/22 09/17/22 fluticasone 100 mcg-salmeterol 50 1 inh inhalation Q12H 09/17/22 09/17/22 mcg/dose blistr powdr for inhalation (Advair Diskus) fluticasone propionate 50 1 spray intranasal HS 09/17/22 09/17/22 mcg/actuation nasal spray,suspension meclizine 50 mg tablet 50 mg PO TID 09/17/22 09/17/22 meloxicam 15 mg tablet 15 mg PO DAILY 09/17/22 09/17/22 metoclopramide HCl 5 mg tablet 5 mg PO Q8H PRN Nausea And Vomiting 09/17/22 09/17/22 cetirizine 10 mg tablet 10 mg PO DAILY 09/18/22 09/18/22 fingolimod 0.5 mg capsule (Aptaraenya) 0.5 mg PO DAILY 09/18/22 09/18/22 hydrocodone 10 mg-acetaminophen 1 tablet PO Q6H 09/18/22 09/18/22 325 mg tablet modafinil 200 mg tablet 200 mg PO QAM 09/18/22 09/18/22 Allergies Allergy/AdvReac Type Severity Reaction Status Date / Time cephalexin Allergy Unknown Verified 10/03/16 17:20 Review of Systems Review of Systems: CONSTITUTIONAL: Denies fever, chills, or sweats. EYES: Denies visual changes. CARDIOVASCULAR: Denies chest pain, palpitations, or edema. RESPIRATORY: Denies cough or dyspnea. GASTROINTESTINAL: See HPI. MUSCULOSKELETAL: See HPI. NEUROLOGIC: See HPI. All systems reviewed & are unremarkable except as noted in HPI and below PMFSH Past Medical History Medical History (Updated 10/13/22 @ 16:59 by Sarah Castano PA-C) Anxiety and depression Hyperlipidemia Multiple sclerosis TBI (traumatic brain injury) Surgical History Surgical History No history of previous surgery Family History Family History Other Cerebrovascular accident Diabetes mellitus Family history of cardiovascular disease Hypertension Social History Social History Social History: The patient has 3 children. He lives with his ex- Carmen who is his durable power plastic shaper for healthcare. He is Diabled. He is a recovering Alcoholic. The patient smokes marijuana when he feels anxious. Code status full code Smoking status: Current some day smoker Smokeless tobacco user: other Additional smoking assessment comments: marijuana daily smoker Alcohol intake: former Substance use: current Substance use type: marijuana Last use: 09/17/22 Lack of Transportation: No Lack of Food: Never True Current Ho
[2022-10-13 15:45] VITALS: BP 111/86; PULSE 90; RESP 18; O2SAT 98
[2022-10-13 16:06] LABS: Appearance Urine Clear (Clear); Bilirubin Urine Negative (Negative); Blood Urine Negative (Negative); Color Urine Yellow (Yellow); Glucose Urine UA Negative (Negative); Ketones Urine Negative (Negative); Leukocyte Esterase Ur Negative LEU/UL (Negative); Nitrate Urine Negative (Negative); Protein Urine Negative (Negative); Urobilinogen Urine 0.2 mg/dL (<2.0)
[2022-10-13 16:08] LABS: Add Urine Microscopic? NO
[2022-10-13 16:55] VITALS: BP 137/94; PULSE 88; RESP 20; O2SAT 98
== END 2022-10-13 18:30 | disposition home or self-care (01) ==
PROVIDERS: Emergency Provider Physician Assistant; PCP Family Medicine
DX: S09.90XA Unspecified injury of head, initial encounter (principal); G35 Multiple sclerosis; E78.5 Hyperlipidemia, unspecified; F41.9 Anxiety disorder, unspecified; F32.A Depression, unspecified; Z87.820 Personal history of traumatic brain injury; F17.200 Nicotine dependence, unspecified, uncomplicated; M47.812 Spondylosis without myelopathy or radiculopathy, cervical region; W01.198A Fall on same level from slipping, tripping and stumbling with subsequent striking against other object, initial encounter
CPT/HCPCS: 36415; 70450; 72125; 80053; 81003; 85025; 93005; 99284